=== PATIENT | female | born 2000 | race African-American/Black ===

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

== ENCOUNTER 2018-05-13 19:23 | Emergency (ER) | payer SELFPAY ==
[~2018-05-13] VITALS: Ht 170.2 cm; Wt 61.7 kg
[~2018-05-13 19:23] MED LIST changes: +BENADRYL25 M3 PO; +IBUPROFEN600 MG ORAL
[2018-05-13] MEDS ORDERED: NKM (19:32)
--- NOTE | 2018-05-13 19:35 | NUR ---
ED Nurse Note: Pt arrived ambulatory. A/Ox4, with complaint of R flank pain 10/29. Pt states she was diagnosed with UTI on 05/01 from PCP. This AM pt noticed burning during urination and began to experience a dull lower back pain. VSS.
[2018-05-13 19:47] VITALS: BP 120/71
[2018-05-13] MEDS ORDERED: Acetaminophen 500mg (ES) tab ORAL ONE (20:30)
[2018-05-13 20:38] LABS: BASOPHILS % (AUTO) 0.9 % (0.0-2.0); EOSINOPHILS % (AUTO) 1.1 % (0.0-3.0); HEMATOCRIT 41.3 % (37.0-47.0); HEMOGLOBIN 12.9 G/DL (12.0-16.0); LYMPHOCYTES % (AUTO) 36.3 % (20.0-45.0); MEAN CORPUSCULAR VOLUME 86 FL (80-99); MONOCYTES % (AUTO) 4.5 % (1.0-10.0); NEUTROPHILS % (AUTO) 57.1 % (45.0-75.0); PLATELET COUNT 146 K/UL (150-450); RED BLOOD COUNT 4.78 M/UL (4.20-5.40); RED CELL DISTRIBUTION WIDTH 12.2 % (11.6-14.8); WHITE BLOOD COUNT 8.4 K/UL (4.8-10.8)
--- NOTE | 2018-05-13 20:41 | Emergency Room Report ---
History of Present Illness General Chief Complaint: Abdominal Pain Source: Patient Present Illness HPI 17-year-old female with recent diagnosis UTI, completed a five-day course of antibiotics on May 09, presents with dysuria and right flank pain that started this morning, reports the pain is been constant in her right back area, noncolicky, nonradiating, no vomiting, no fevers, no other symptoms. Allergies: Coded Allergies: No Known Allergies (Unverified , 11/15/14) Patient History Past Medical History: see triage record Last Menstrual Period: still on Now: No Reviewed Nursing Documentation: PMH: Agreed; PSxH: Agreed Nursing Documentation-PMH Hx Hypertension: Yes Hx Neurological Problems: Yes - uti Review of Systems All Other Systems: negative except mentioned in HPI Physical Exam Vital Signs Date Time Temp Pulse Resp B/P (MAP) Pulse Ox O2 Delivery O2 Flow Rate FiO2 05/13/18 19:27 97.9 70 16 120/71 96 Room Air Sp02 EP Interpretation: reviewed, normal General Appearance: no apparent distress, alert, non-toxic Head: normocephalic Eyes: bilateral eye normal inspection, bilateral eye PERRL, bilateral eye EOMI ENT: normal ENT inspection, hearing grossly normal, normal pharynx, no angioedema, normal voice, moist mucus membranes Neck: normal inspection, full range of motion, supple, supple/symm/no masses Respiratory: chest non-tender, lungs clear, normal breath sounds, chest symmetrical, palpation of chest normal Cardiovascular #1: normal peripheral pulses, regular rate, rhythm, no edema, no gallop, no JVD, no murmur, no rub Cardiovascular #2: 2+ radial (R), 2+ radial (L) Gastrointestinal: normal inspection, non tender, soft, no mass, no organomegaly , no peritonitis, no guarding, no rebound Rectal: deferred Genitourinary: CVA tenderness (R) Musculoskeletal: back normal, gait/station normal, normal range of motion, non- tender, no calf tenderness Neurologic: alert, responsive, delivery rn III-XII nml as tested, motor strength/tone normal, sensory intact, speech normal Psychiatric: judgement/insight normal, memory normal, mood/affect normal Skin: normal color, no rash, warm/dry, normal turgor Lymphatic: no adenopathy Medical Decision Making Diagnostic Impression: Primary Impression: Pyelonephritis ER Course Patient well-appearing, no PMH or PSH, soft abdomen, no McBurney's point tenderness but +R CVA tenderness with dysuria is highly suspicious for pyelonephritis. Patient denied abnormal vaginal discharge, itching, burning, or odor. ua with uti, last abx was macrobid, so given 1g IM Rocephin, as well as prescription for Keflex, ibuprofen, return for fever pain, vomiting, and urine culture sent for sensitivities Last Vital Signs Date Time Temp Pulse Resp B/P (MAP) Pulse Ox O2 Delivery O2 Flow Rate FiO2 05/13/18 19:47 70 16 Room Air 05/13/18 19:47 97.9 120/71 96 Disposition: HOME, SELF-CARE Condition: Stable FAMILIA YARBROUGH M.D May 13, 2018 20:40
[2018-05-13 20:44] LABS: ANION GAP 10 mmol/L (5-15); BLOOD UREA NITROGEN 7 mg/dL (7-18); CALCIUM 9.5 MG/DL (8.5-10.1); CARBON DIOXIDE 27 MMOL/L (21-32); CHLORIDE 104 MMOL/L (98-107); CREATININE 0.7 MG/DL (0.55-1.30); POTASSIUM 3.9 MMOL/L (3.5-5.1); SODIUM 140 MMOL/L (136-145)
[2018-05-13 20:44] LABS: APPEARANCE,URINE CLEAR; BILIRUBIN, URINE NEGATIVE (NEGATIVE); COLOR,URINE PALE YELLOW; GLUCOSE, URINE (UA) NEGATIVE (NEGATIVE); KETONES,URINE NEGATIVE (NEGATIVE); LEUKOCYTE ESTERASE ,URINE 3+ (NEGATIVE); NITRITE,URINE NEGATIVE (NEGATIVE); PH,URINE 7 (4.5-8.0); PROTEIN,URINE NEGATIVE (NEGATIVE); UROBILINOGEN,URINE NORMAL MG/DL (0.0-1.0)
[2018-05-13 20:48] LABS: ALANINE AMINOTRANSFERASE 16 U/L (12-78); ALBUMIN 3.7 G/DL (3.4-5.0); ALBUMIN/GLOBULIN RATIO 1.1 (1.0-2.7); ALKALINE PHOSPHATASE 55 U/L (46-116); ASPARTATE AMINO TRANSFERASE 15 U/L (15-37); BILIRUBIN,TOTAL 0.4 MG/DL (0.2-1.0)
[2018-05-13] MEDS ORDERED: Lidocaine 1% MPF 10mg/ml 5ml INJ ONE (21:00)
[2018-05-13] MEDS ORDERED: Ketorolac 60mg Inj IM ONE (21:00)
[2018-05-13] MEDS ORDERED: IBUPROFEN600 MG ORAL (21:01)
[2018-05-13] MEDS ORDERED: CEPHALEXIN500 MG ORAL (21:01)
[2018-05-13 21:20] VITALS: BP 126/69
--- NOTE | 2018-05-13 21:20 | NUR ---
ED Nurse Note: Pt cleared by MD. Patten, ambulatory with steady gait. Discharge instructions and prescriptions provided. Pt verbalized understanding of all instructions. ID band removed. All belongings taken with patient. Pt to be taken home by cousin.
== END 2018-05-13 21:20 | disposition home or self-care (01) ==
LOC: EMR 20:00
DX: N12 Tubulo-interstitial nephritis, not specified as acute or chronic (principal); I10 Essential (primary) hypertension
CPT/HCPCS: 36415; 80053; 81003; 81025; 83690; 85025; 87086; 96372; 96374; 99284; J0696

== ENCOUNTER 2019-06-02 13:10 | Emergency (ER) | payer OTHER ==
[~2019-06-02] VITALS: Ht 167.6 cm; Wt 58.1 kg
[~2019-06-02 13:10] MED LIST changes: +CEPHALEXIN500 MG ORAL; +NKM
[2019-06-02 13:34] VITALS: BP 120/76
--- NOTE | 2019-06-02 13:34 | NUR ---
ED Nurse Note: PT walked in to ED for C/O Flu like S/Sx x 3 days. pt reports having sorethroat, poor appetite, Headache, N/V
--- NOTE | 2019-06-02 13:41 | Emergency Room Report ---
History of Present Illness General Chief Complaint: Flu Like Symptoms Present Illness HPI 18-year-old female with no significant past medical history here complaining of 3 days of a 10 out of 10 sore throat as w the last 2 days with generalized body ache, chills, epigastric pain and nausea. Patient denies vomiting, diarrhea, constipation, fever, recent travel. Has not taken medication for symptom relief. Denies urinary symptoms. Appears to be stable with stable vital signs. Allergies: Coded Allergies: No Known Allergies (Unverified , 11/15/14) Patient History Past Medical History: see triage record Past Surgical History: none Pertinent Family History: none Last Menstrual Period: 04/27/19 Now: No Immunizations: UTD Reviewed Nursing Documentation: PMH: Agreed; PSxH: Agreed Nursing Documentation-PMH Past Medical History: No Stated History Hx Hypertension: Yes Hx Neurological Problems: Yes - uti Review of Systems All Other Systems: negative except mentioned in HPI Physical Exam Vital Signs Date Time Temp Pulse Resp B/P (MAP) Pulse Ox O2 Delivery O2 Flow Rate FiO2 06/02/19 13:28 98.1 95 16 118/76 (90) 99 Room Air Sp02 EP Interpretation: reviewed, normal General Appearance: no apparent distress, alert, GCS 15, non-toxic Head: normocephalic, atraumatic Eyes: bilateral eye normal inspection, bilateral eye PERRL ENT: hearing grossly normal, no angioedema, TMs + canals normal, uvula midline , moist mucus membranes, tonsillar swelling, tonsillar exudate Neck: full range of motion, supple/symm/no masses, other - Anterior cervical lymphadenopathy Respiratory: chest non-tender, lungs clear, normal breath sounds, no rhonchi, no retraction, no wheezing, speaking full sentences Cardiovascular #1: regular rate, rhythm, no murmur, normal capillary refill Gastrointestinal: normal bowel sounds, non tender, soft, non-distended, no guarding, no rebound Genitourinary: no CVA tenderness Neurologic: alert, motor strength/tone normal, oriented x3, sensory intact, responsive, speech normal Psychiatric: judgement/insight normal, memory normal, mood/affect normal, no suicidal/homicidal ideation Skin: no rash, normal color, warm/dry Lymphatic: adenopathy - Anterior cervical lymphadenopathy Medical Decision Making PA Attestation All my diagnosis and treatment plans were reviewed ad discussed with my supervising physician Dr. Beckwith Diagnostic Impression: Primary Impression: Strep pharyngitis Additional Impression: Nausea ER Course 18-year-old female with no significant past medical history here complaining of 3 days of a 10 out of 10 sore throat as w the last 2 days with generalized body ache, chills, epigastric pain and nausea. Patient denies vomiting, diarrhea, constipation, fever, recent travel. Has not taken medication for symptom relief. Denies urinary symptoms. Appears to be stable with stable vital signs. Ddx considered but are not limited to: strep pharyngitis, URI, tonsillitis, peritonsillar abscess, influenza Vital signs: are WNL, pt. is afebrile H&PE are most consistent with: Strep pharyngitis, nausea most likely secondary to flulike symptoms ORDERS: Amoxicillin, Zofran ED INTERVENTIONS: None required at this time. DISCHARGE: At this time pt. is stable for d/c to home. Will provide printed patient care instructions, and any necessary prescriptions. Care plan and follow up instructions have been discussed with the patient prior to discharge. I explained the patient the patient that her symptoms started most likely with flulike symptoms however she also has strep throat. Increase oral hydration, keep a brat diet, take medication as directed, take Tylenol for pain. Ibuprofen, if worsening symptoms return to the emergency room Last Vital Signs Date Time Temp Pulse Resp B/P (MAP) Pulse Ox O2 Delivery O2 Flow Rate FiO2 06/02/19 13:34 98.0 84 17 120/76 98 Room Air Disposition: HOME, SELF-CARE Condition: Stable Scripts Ondansetron (Zofran) 4 Mg Tablet 4 MG ORAL Q6H PRN for Nausea & Vomiting, #10 TAB Prov: Krishan Schmid 06/02/19 Amoxicillin* (AMOXIL*) 500 Mg Capsule 500 MG ORAL EVERY 12 HOURS for 10 Days, #20 CAP Prov: Krishan Schmid 06/02/19 Patient Instructions: Nausea and Vomiting, Adult, Strep Throat Additional Instructions: Take medication as directed, follow-up with your primary care provider, increase oral hydration, keep a brat diet, if worsening symptoms return to the emergency room Krishan Schmid Jun 02, 2019 13:41
[2019-06-02] MEDS ORDERED: ZOFRAN4 M1 ORAL (13:43)
[2019-06-02] MEDS ORDERED: AMOXICILLIN500 MG ORAL (13:43)
[2019-06-02 13:51] VITALS: BP 112/80
== END 2019-06-02 13:51 | disposition home or self-care (01) ==
LOC: EMR 13:43
DX: J02.0 Streptococcal pharyngitis (principal); R11.0 Nausea; I10 Essential (primary) hypertension
CPT/HCPCS: 99282

== ENCOUNTER 2019-11-05 15:49 | Emergency (ER) | payer MEDICAID, OTHER ==
[~2019-11-05] VITALS: Ht 170.2 cm; Wt 68.9 kg
[~2019-11-05 15:49] MED LIST changes: +AMOXICILLIN500 MG ORAL; +ZOFRAN4 M1 ORAL
[2019-11-05] MEDS ORDERED: Lidocaine 1% MPF 10mg/ml 5ml INJ ONE (16:15)
[2019-11-05] MEDS ORDERED: Bicillin LA 2.4MMU/4ML SYR IM ONE (16:15)
[2019-11-05] MEDS ORDERED: Azithromycin 250mg tab ORAL ONE (16:15)
--- NOTE | 2019-11-05 16:30 | NUR ---
ED Nurse Note:pt. is 28 weeks ,was exposed to STD and wants to be checked for it, blood and urine were sent to labs, pt. is getting U/S done
[2019-11-05 16:36] VITALS: BP 117/77
[2019-11-05 17:17] LABS: BASOPHILS % (AUTO) 0.8 % (0.0-2.0); EOSINOPHILS % (AUTO) 1.4 % (0.0-3.0); HEMATOCRIT 36.7 % (37.0-47.0); HEMOGLOBIN 11.7 G/DL (12.0-16.0); LYMPHOCYTES % (AUTO) 14.5 % (20.0-45.0); MEAN CORPUSCULAR VOLUME 87 FL (80-99); MONOCYTES % (AUTO) 5.6 % (1.0-10.0); NEUTROPHILS % (AUTO) 77.8 % (45.0-75.0); PLATELET COUNT 234 K/UL (150-450); RED BLOOD COUNT 4.22 M/UL (4.20-5.40); RED CELL DISTRIBUTION WIDTH 12.6 % (11.6-14.8); WHITE BLOOD COUNT 11.8 K/UL (4.8-10.8)
--- NOTE | 2019-11-05 17:21 | Diagnostic Imaging Report ---
ADDENDUM - Added by Wilfrid Pagan MD on 11/10/2019 6:15 PM (-07:00) This is a correction to the original report. The exam designation should read as follows: EXAM: US Second Trimester , Transabdominal and Transvaginal EXAM: US First Trimester , Transabdominal and Transvaginal CLINICAL HISTORY: Gravid female with pelvic pain. TECHNIQUE: Real-time transabdominal and transvaginal obstetrical ultrasound of the maternal pelvis and a first trimester with image documentation. Transvaginal imaging was used for better evaluation of the fetus and adnexa. COMPARISON: None. FINDINGS: Gestation: Single viable intrauterine gestation is noted. heart rate is 137 bpm. BPD: Biparietal diameter 7.4 cm corresponding to 29 weeks 0 days. HC: Head circumference 26.3 cm corresponding to 28 weeks 5 days. AC: Abdominal circumference 24.14 cm corresponding to 28 weeks 1 day. FL: Femur length 5.32 cm corresponding to 28 weeks 0 days. Placenta/amniotic fluid: Amniotic fluid index is 13.26 cm. Placenta is located anteriorly. Uterus/cervix: Cervix measures 3.9 cm and is closed. Cervix measures 3.96 cm and is closed. No myometrial mass. Ovaries: Unremarkable. No mass. Free fluid: An air fluid index is 13.26 cm. IMPRESSION: 1. Single viable intrauterine gestation corresponding to a gestational age of 28 weeks 3 days. 2. heart rate is 137 bpm. 3. Cervix is closed. 4. Fetus is in breech presentation. 5. Placenta is noted anteriorly.
[2019-11-05 17:23] LABS: APPEARANCE,URINE SLIGHTLY CLOUDY; BILIRUBIN, URINE NEGATIVE (NEGATIVE); COLOR,URINE PALE YELLOW; GLUCOSE, URINE (UA) NEGATIVE (NEGATIVE); KETONES,URINE NEGATIVE (NEGATIVE); LEUKOCYTE ESTERASE ,URINE 3+ (NEGATIVE); NITRITE,URINE NEGATIVE (NEGATIVE); PH,URINE 6.5 (4.5-8.0); PROTEIN,URINE NEGATIVE (NEGATIVE); UROBILINOGEN,URINE NORMAL MG/DL (0.0-1.0)
[2019-11-05 17:37] LABS: ANION GAP 8 mmol/L (5-15); BLOOD UREA NITROGEN 10 mg/dL (7-18); CALCIUM 8.8 MG/DL (8.5-10.1); CARBON DIOXIDE 27 MMOL/L (21-32); CHLORIDE 103 MMOL/L (98-107); CREATININE 0.6 MG/DL (0.55-1.30); POTASSIUM 3.8 MMOL/L (3.5-5.1); SODIUM 138 MMOL/L (136-145)
[2019-11-05 17:42] LABS: ALANINE AMINOTRANSFERASE < 6 U/L (12-78); ALBUMIN 2.8 G/DL (3.4-5.0); ALKALINE PHOSPHATASE 67 U/L (46-116); ASPARTATE AMINO TRANSFERASE 16 U/L (15-37); BILIRUBIN,TOTAL 0.2 MG/DL (0.2-1.0)
[2019-11-05 17:55] VITALS: BP 117/77
--- NOTE | 2019-11-05 17:55 | Emergency Room Report ---
History of Present Illness General Chief Complaint: General Complaint Source: Patient Present Illness HPI 18-year-old female who is 28 weeks and is G1, P0 here requesting to be tested for sexually transmitted diseases. Patient reports that she was just told by her significant other he was diagnosed with primary syphilis and patient is requesting treatment for it. Patient refuses to get treated for all other STDs. Patient testing here. Patient has not been taking Ceftin azithromycin for chlamydia gonorrhea. Patient denies any abdominal pain, vaginal bleeding or spotting. Reports her last visit to [facility] was 2 weeks ago and everything within normal limits. Patient is taking vitamins. Denies any chest pain, shortness of breath, fever and chills. Denies any vaginal lesions or discharge. Has not taken medication for symptom relief. Patient also wants to have her baby checked to make sure baby does not have any stiffness. Advised patient to follow-up with [facility] yesterday for testing. However we can offer an ultrasound to check for heart rate as well intrauterine presentation. Allergies: Coded Allergies: No Known Allergies (Unverified , 11/15/14) COVID-19 Screening Contact w/high risk pt: No Experienced COVID-19 symptoms?: No COVID-19 Testing performed MANAGER IN TRAINING: No Patient History Past Medical History: see triage record Past Surgical History: none Pertinent Family History: none Now: No Immunizations: UTD Reviewed Nursing Documentation: PMH: Agreed; PSxH: Agreed Nursing Documentation-PMH Past Medical History: No Stated History Hx Hypertension: Yes Hx Neurological Problems: Yes - uti Review of Systems All Other Systems: negative except mentioned in HPI Physical Exam Vital Signs Date Time Temp Pulse Resp B/P (MAP) Pulse Ox O2 Delivery O2 Flow Rate FiO2 11/05/19 15:53 98.2 82 19 117/77 (90) 98 Room Air Sp02 EP Interpretation: reviewed, normal General Appearance: no apparent distress, alert, GCS 15, non-toxic Head: normocephalic, atraumatic Eyes: bilateral eye normal inspection, bilateral eye PERRL ENT: hearing grossly normal, normal pharynx, no angioedema, normal voice Neck: full range of motion, supple/symm/no masses Respiratory: chest non-tender, lungs clear, normal breath sounds, no rhonchi, no respiratory distress, speaking full sentences Cardiovascular #1: no edema, no murmur Cardiovascular #2: 2+ dorsalis pedis (R), 2+ dorsalis pedis (L) Gastrointestinal: normal bowel sounds, non tender, soft, non-distended, no guarding, no rebound Rectal: deferred Genitourinary: no CVA tenderness Musculoskeletal: back normal, no calf tenderness Neurologic: alert, motor strength/tone normal, oriented x3, sensory intact, responsive, speech normal Psychiatric: judgement/insight normal, memory normal, mood/affect normal, no suicidal/homicidal ideation Skin: no rash Lymphatic: no adenopathy Medical Decision Making PA Attestation All diagnoses and treatment plans were reviewed and discussed with my supervising physician Dr. Esquivel Diagnostic Impression: Primary Impression: Exposure to syphilis Additional Impression: UTI (urinary tract infection) during ER Course 18-year-old female who is 28 weeks and is G1, P0 here requesting to be tested for sexually transmitted diseases. Patient reports that she was just told by her significant other he was diagnosed with primary syphilis and patient is requesting treatment for it. Patient refuses to get treated for all other STDs. Patient testing here. Patient has not been taking Ceftin azithromycin for chlamydia gonorrhea. Patient denies any abdominal pain, vaginal bleeding or spotting. Reports her last visit to [facility] was 2 weeks ago and everything within normal limits. Patient is taking vitamins. Denies any chest pain, shortness of breath, fever and chills. Denies any vaginal lesions or discharge. Has not taken medication for symptom relief. Patient also wants to have her baby checked to make sure baby does not have any stiffness. Advised patient to follow-up with [facility] yesterday for testing. However we can offer an ultrasound to check for heart rate as well intrauterine presentation. Ddx considered but are not limited to: vaginitis, yeast infection, BV, chlamydia , Gonorrhea, syphilis, HIV, herpes 1 or 2, PID, UTI, abdominal pain during , threatened , ectopic Vital signs: are WNL, pt. is afebrile H&PE are most consistent with : Exposure to syphilis, UTI during ORDERS: UA, urince cx, CBC, CMP, hCG quantitative screen, OB ultrasound, Keflex ED INTERVENTIONS: Penicillin G Patient refused to receive azithromycin and Rocephin DISCHARGE: At this time pt. is stable for d/c to home. Will provide printed patient care instructions, and any necessary prescriptions. Care plan and follow up instructions have been discussed with the patient prior to discharge. Gave a list of STD clinics to patient for further evaluation. Patient to follow-up with [facility] in 24 to 48 hours, if worsening symptoms return to the emergency room CT/MRI/US Diagnostic Results CT/MRI/US Diagnostic Results : Imaging Test Ordered: OB ultrasound Impression IMPRESSION: 1. Single viable intrauterine gestation corresponding to a gestational age of 28weeks 3 days. 2. heart rate is 137 bpm. 3. Cervix is closed. 4. Fetus is in breech presentation. 5. Placenta is noted anteriorly. Last Vital Signs Date Time Temp Pulse Resp B/P (MAP) Pulse Ox O2 Delivery O2 Flow Rate FiO2 11/05/19 16:36 98.2 88 19 117/77 98 Room Air Disposition: HOME, SELF-CARE Condition: Stable Scripts Cephalexin* (KEFLEX*) 500 Mg Capsule 500 MG ORAL EVERY 12 HOURS for 7 Days, #14 CAP 0 Refills Prov: Krishan Schmid 11/05/19 Referrals: [facility],REFERRING (PCP) Patient Instructions: and Urinary Tract Infection, Syphilis Additional Instructions: Take medication as directed, follow with your [facility] in 24 to 48 hours, if worsening symptom return to the emergency room Krishan Schmid Nov 05, 2019 17:55
--- NOTE | 2019-11-05 17:55 | NUR ---
ER DISCHARGE NOTE: Patient is cleared to be discharged per ERMD, pt is aox4, on room air, with stable vital signs. pt was given dc and prescription instructions, pt was able to verbalize understanding, pt id band and iv site removed without complications. pt is able to ambulate with steady gait. pt took all belongings.
[2019-11-05] MEDS ORDERED: CEPHALEXIN500 MG ORAL (17:56)
[2019-11-05 18:43] LABS: ALBUMIN/GLOBULIN RATIO 0.7 (1.0-2.7)
== END 2019-11-05 18:00 | disposition home or self-care (01) ==
LOC: EMR 17:08
DX: Z20.2 Contact with and (suspected) exposure to infections with a predominantly sexual mode of transmission (principal); O23.43 Unspecified infection of urinary tract in pregnancy, third trimester; I10 Essential (primary) hypertension; Z3A.28 28 weeks gestation of pregnancy
CPT/HCPCS: 36415; 76805; 76817; 80053; 81003; 84702; 85025; 86703; 86850; 86900; 86901; 87086; 96372; Z7502; 99284